=== PATIENT | female | born 1975 ===

== ENCOUNTER 2018-10-09 09:52 | Emergency (ER) | payer OTHER ==
--- NOTE | 2018-10-09 10:00 | UC ---
FLU HPI - HPI Summary HPI Summary: 43 yo female presents with fatigue, body aches, and feeling feverish since last night. She has a coworker who was sick with similar symptoms and was dx'd with the flu. Pt took ibuprofen for her symptoms with mild relief. Denies sinus symptoms, sore throat, SOB, rash, abdominal pain, n/v, or dysuria - History of Current Complaint Stated Complaint: POSS FLU Time Seen by Provider: 10/09/18 10:00 Hx Obtained From: Patient Onset/Duration: Sudden Onset Severity Currently: Moderate Severity Initially: Moderate Pain Intensity: 5 Pain Scale Used: 0-10 Numeric - Allergy/Home Medications Allergies/Adverse Reactions: Allergies Allergy/AdvReac Type Severity Reaction Status Date / Time No Known Allergies Allergy Verified 10/09/18 10:01 Home Medications: Home Medications Ibuprofen 600 mg PO Q8HR PRN 10/09/18 [History Confirmed 10/09/18] Levonorgestrel-Ethin Estradiol [Lillow 0.15-30 mg-Mcg] 1 tab PO DAILY 10/09/18 [ History Confirmed 10/09/18] PMH/Surg Hx/FS Hx/Imm Hx - Additional Past Medical History Additional PMH: None - Surgical History Surgical History: None - Family History Known Family History: Positive: None - Social History Occupation: Employed Full-time Lives: With Family Alcohol Use: Occasionally Substance Use Type: None Smoking Status (MU): Never Smoked Tobacco Review of Systems All Other Systems Reviewed And Are Negative: Yes Constitutional: Positive: Fever, Fatigue, Other - Body aches Skin: Positive: Negative Eyes: Positive: Negative ENT: Positive: Negative Respiratory: Positive: Negative Cardiovascular: Positive: Negative Gastrointestinal: Positive: Negative Neurovascular: Positive: Negative Neurological: Positive: Negative Psychological: Positive: Negative Physical Exam - Summary Physical Exam Summary: GENERAL: NAD. WDWN. No pain distress. SKIN: No rashes, sores, lesions, or open wounds. HEENT: Head: AT/NC Eyes: EOM intact. Conjunctiva clear without inflammation or discharge. Ears: Hearing grossly normal. TMs intact, no bulging, erythema, or edema. Nose: Nasal mucosa pink and moist. NTTP maxillary and frontal sinus. Throat: Posterior oropharynx without exudates, erythema, or tonsillar enlargement. Uvula midline. NECK: Supple. Nontender. No lymphadenopathy. CHEST: CTAB. No r/r/w. No accessory muscle use. Breathing comfortably and in no distress. CV: RRR. Without m/r/g. Pulses intact. Cap refill <2seconds NEURO: Alert. PSYCH: Age appropriate behavior. Triage Information Reviewed: Yes Vital Signs: Vital Signs: Temp Pulse Resp BP Pulse Ox 100.1 F 98 18 124/72 99 10/09/18 10:02 10/09/18 10:02 10/09/18 10:02 10/09/18 10:02 10/09/18 10:02 Laboratory Tests 10/09/18 10:10 Influenza A (Rapid) Positive A Vital Signs Reviewed: Yes Flu Course/Dx - Course Course Of Treatment: POC flu positive. Rx for tamiflu - Differential Dx/Diagnosis Provider Diagnosis: Influenza Discharge - Sign-Out/Discharge Documenting (check all that apply): Patient Departure All imaging exams completed and their final reports reviewed: No Studies - Discharge Plan Condition: Stable Disposition: HOME Prescriptions: Oseltamivir CAP* [Tamiflu CAP*] 75 mg PO BID #10 cap Patient Education Materials: Influenza (ED) Referrals: Landen Powers MD [Primary Care Provider] - Additional Instructions: If you develop a fever, shortness of breath, chest pain, new or worsening symptoms - please call your PCP or go to the ED. 1) Rest and drink plenty of fluids! 2) May take tylenol/ibuprofen for discomfort or fevers - Billing Disposition and Condition Condition: STABLE Disposition: Home
[2018-10-09 10:07] VITALS: BP 124/72
[2018-10-09 10:19] LABS: Influenza A Molecular POSITIVE (Negative)
== END 2018-10-09 10:45 | disposition home or self-care (01) ==
LOC: UCEAST 09:52
DX: J10.1 Influenza due to other identified influenza virus with other respiratory manifestations (principal)
CPT/HCPCS: 99202; G0463